=== PATIENT | male | born 1985 | race Two or more races ===

== ENCOUNTER 2021-12-02 16:25 | Inpatient (IN) | payer OTHER, SELFPAY ==
--- NOTE | ~2021-12-02 | US_ITS ---
EXAMINATION: US scrotum doppler DATE: 12/04/2021 09:00 INDICATION: Assess for worsening ischemia. TECHNIQUE: Testicular sonogram utilizing grayscale and Doppler COMPARISON: None. FINDINGS: The right testis measures 4.2 x 3.8 x 2.0 cm. The left testis measures 4.4 x 3.2 x 2.9 cm. Normal gra yscale appearance to the right testis. The left testis there is a geographic region of decreased echo genicity centered over the rete testes which measures 2.8 x 2.4 x 3.1 cm. There is however no evident distortion of the architectural pattern of the left testis to suggest this represents a mass. There is asymmetric decreased vascular flow on color Doppler in the left testis relative to the right testi s particularly in the more hypoechoic region were there is no discernible vascular flow on color Dopp ler. At the more hyperechoic region of the left testis there is some arterial flow on the peripheral capsule and small vessel with venous waveform within the hyperechoic portion of the testis. The right epididymis is normal with normal vascular flow. The left epididymis appears edematous, thickened wit h heterogeneous decreased echogenicity relative to the right testis. There is also asymmetrically dec reased but not absent vascular flow in the left epididymis relative to the right epididymis. There is no varicocele. Small complex left hydrocele with multiple thin internal septations. IMPRESSION: 1. Persistent 2.8 x 2.4 x 3.1 cm geographic region occupying approximately one half the left testicu lar volume which demonstrates decreased echogenicity and absent vascular flow on color Doppler which remains concerning for segmental infarction. Vascular flow is present but appears asymmetrically decr eased in the remainder of the left testis and in the left epididymis relative to the contralateral ri ght testis and epididymis. This could be due to either thrombosis or torsion with some regions of rel atively preserved vascular flow due to collaterals. 2. Small complex left hydrocele. Reviewed, dictated and finalized at location A. IMPRESSION: 1. Persistent 2.8 x 2.4 x 3.1 cm geographic region occupying approximately one half the left testicular volume which demonstrates decreased echogenicity and absent vascular flow on color Doppler which remains concerning for segmental in farction. Vascular flow is present but appears asymmetrically decreased in the remainder of the left testis and in the left epididymis relative to the contral ateral right testis and epididymis. This could be due to either thrombosis or t orsion with some regions of relatively preserved vascular flow due to collatera ls. 2. Small complex left hydrocele.
--- NOTE | ~2021-12-02 | US_ITS ---
EXAMINATION: US scrotum doppler DATE: 12/02/2021 19:10 INDICATION: Pain, rule out torsion. Vasectomy 5 days ago. TECHNIQUE: Grayscale and Doppler ultrasound images of the testes were obtained. COMPARISON: None. FINDINGS: The right testis measures 4.5 x 2.1 x 2.5 cm. The left testis measures 4.4 x 2.8 x 3.0 cm. Sharply demarcated hypoechoic area in the left testicle encompassing approximately one half testicula r volume, with no flow. Findings are atypical for torsion and most likely represent testicular infarc tion, although intratesticular hematoma, rare entities like granulomatous disease, or testicular neop lasm (with poor Doppler technique) can appear similar. Slightly decreased vascular flow in the remain ing normal left testicle parenchyma relative to the right. The right epididymis is normal with normal vascular flow. The left epididymis is slightly enlarged relative to the right, measuring 11 mm. No v aricocele. Moderate right hydrocele. Mild volume complex left hydrocele. Scrotal skin thickening. IMPRESSION: 1. Abnormal findings in the left testicle, likely representing segmental testicular infarction. Diff erential discussed above. 2. Bilateral hydroceles, moderate volume on the right, small volume and complex on the left. Reviewed, dictated and finalized at location K. IMPRESSION: 1. Abnormal findings in the left testicle, likely representing segmental testi cular infarction. Differential discussed above. 2. Bilateral hydroceles, moderate volume on the right, small volume and complex on the left.
[2021-12-02 16:25] VITALS: BP 150/89; PULSE 84; RESP 17; TEMP 37.6; O2SAT 99
--- NOTE | 2021-12-02 16:27 | ED.MALEGU ---
HPI - Male Genitourinary General Chief complaint: Urogenital-Male <Michlele Staton MD - Last Filed: 12/02/21 18:47> Stated complaint: POSSIBLE TORSION - URGENT CARE <Michelle Staton MD - Last Filed: 12/02/21 18:47> Time Seen by Provider: 12/02/21 16:26 <Michelle Staton MD - Last Filed: 12/02/21 18:47> History of Present Illness HPI Narrative: here from [facility] ER after having vasectomy where he says they told him he woke up on the table trying to get off it so when he started having pain that night after the procedure last Friday thought he might have pulled something from moving in procedure but it has been progressing since so went to the ER, I reviewed their labs cbc, cmp and ua neg and had procedure done at [facility] but ER doc there called Dr Rios here b/c they have no US oncall for evaluation I spoke with Dr French ER doc and transferred here for US and then Dr Rios can evaluate pt denies nv/d/f/cp/sob/abd pain//urine chagnes or new trauma <Michelle Staton MD - Last Filed: 12/02/21 18:47> Related Data Home medications: Home Medications Medication Instructions Recorded Confirmed acetaminophen 325 mg tablet mg PRN Pain, Mild 12/02/21 12/02/21 (Tylenol) ibuprofen 600 mg tablet mg PRN Pain (Scale Score 4-6) 12/02/21 <Michelle Staton MD - Last Filed: 12/02/21 18:47> Allergies/Adverse reactions: Allergies Allergy/AdvReac Type Severity Reaction Status Date / Time No Known Allergies Allergy Verified 12/02/21 16:38 <Michelle Staton MD - Last Filed: 12/02/21 18:47> Review of Systems Constitutional: Comments: CONSTITUTIONAL: Denies fever, chills, or sweats. EYES: Denies visual changes, redness, or discharge. ENT: Denies rhinorrhea, congestion, sore throat, or otalgia. CARDIOVASCULAR: Denies chest pain, palpitations, or edema. RESPIRATORY: Denies cough or dyspnea. GASTROINTESTINAL: Denies abdominal pain, nausea, vomiting, or diarrhea. GENITOURINARY: Denies dysuria or hematuria. has left testicular pain and swelling post op SKIN: Denies rash or itching. MUSCULOSKELETAL: Denies back pain, joint pain, or myalgia. NEUROLOGIC: Denies headache, numbness, or weakness. PSYCHIATRIC: Denies anxiety or depression. <Michelle Staton MD - Last Filed: 12/02/21 18:47> Exam Const: Other: APPEARANCE: Well appearing, no pain in distress, well-nourished. Head normocephalic atraumtaic. EYES: PERRLA/EOMI, conjunctivae very clear. NOSE: Normal no drainage EARS:TMS clear Evelyne Moreau, with good light reflex. THROAT: Pharynx clear, no exudate. NECK: Supple. No adenopathy, no masses. RESPIRATORY: Airway patent, repsirations nonlabored. Clear to auscultation bilaterally, no rales, rhonchi, wheezing. CARDIOVASCULAR: Regular rate and rhythm without murmurs rubs or gallops. ABDOMINAL: Soft, nontender, nondistended, no hepatosplenomegally has left testicular firmness and pain no hernia or penile lesions/d/c MUSCULOSKELETAl: Moves all extremities. Strenght/ROM intact, No edema, No calf tenderness. NEURO: Alert. Cranial nerves II through XII intact. Good gait. Good coordination SKIN:: Warm, dry. Normal Color PSYCHIATRIC: Normal affect/mood, normal interaction with parents. <Michelle Staton MD - Last Filed: 12/02/21 18:47> Course Reevaluation(s) Reevaluation #1: Dr. Rios was consulted and reports he is en route to the ED. <David Brewer MD - Last Filed: 12/02/21 20:40> Reevaluation #2: Patient will be admitted with IV antibiotics and pain control. Urology was consulted. Urology requested patient be admitted to the hospitalist. Case was discussed with the hospitalist and patient was septic for admission. Prior to going to the floor patient was given additional Dilaudid for pain control and started on Unasyn. Patient was stable at time of admission. <David Brewer MD - Last Filed: 12/02/21 20:40> Consultations Consultation #1: let Al
[2021-12-02] MEDS: ONDANSETRON INJ 4 MG/2 ML VIAL IV PUSH ×2 (16:56→20:42)
[2021-12-02] MEDS: HYDROmorphone HCL INJ (*CRX) 1 MG/ML SYR 2 MG IV PUSH (16:57)
[2021-12-02 17:39] VITALS: BP 141/79; PULSE 85; RESP 19; O2SAT 98
--- NOTE | 2021-12-02 18:57 | PC.NURSE ---
Pt to U/S at this time.
[2021-12-02 19:12] VITALS: BP 153/83; PULSE 76; RESP 17; O2SAT 99
--- NOTE | 2021-12-02 20:10 | PC.NURSE ---
Urologist Dr. Rios present in ED to examine pt.
--- NOTE | 2021-12-02 20:19 | WPDURCON ---
Assessment and Plan Assessment and plan (1) Testicular infarct, left: Code(s): N50.1 - Vascular disorders of male genital organs Status: Acute Assessment and Plan: After examination and review of images, the likeliest cause of this patient's pain is testicular infarct due to devacularization. His history, exam, and ultrasound are not consistent with testicular torsion. I have reviewed the images and agree with radiology interpretation. I discussed the options of observation, particularly as this has been ongoing for 5 days vs. scrotal exploration. The patient and his agree against exploration tonight in favor of admission for pain control and antibiotics as orchitis remains a possibility. He understands he may, and likely will, lose function and volume of at least 1/2 of the left testicle and is comfortable with this possibility. His principal concern is pain control. He will require outpatient follow up ultrasounds. Recommendations: 1. Admit to observation. 2. Pain control with NSAIDs and narcotics as needed. 3. Antibiotics--consider Augmentin vs. Bactrim. 4. Scrotal support, ice and sitz baths for symptom support. Jean Marie Rios M.D. [facility] Consult Note HPI Date Seen: 12/02/21 Primary Care Provider: PHYSICIAN NOT ON STAFF Consult Narrative Narrative: Chelo Storm is a 36 year old male who underwent vasectomy under sedation in [place] on Friday11/28/2021. The patient reports he was told that he came of the table during the procedure due to pain but not recall this due to the sedation. He reports he noted swelling and pain postoperatively that progressively worsened. Today, the pain worsened to the point that he decided to seek evaluation at [facility] in [place]. He was transferred to [place] due to lack of US staffing at [place]. He denies fevers, his WBC wsa 9.2, Hgb 14.2 Hct 41.7, lactate 1.7, normal UA and normal BMP at [place]. His US today shows a segmental infarct involving the cephalad half of the left testicle with a defined margin of hypoechoic parenchyma involving only the superior half of the testicle. Review of Systems Review of Systems: All systems reviewed & are unremarkable except as noted in HPI and below Genitourinary: Comments: Scrotal pain Meds Home Medications and Allergies Home Medications Medication Instructions Recorded Confirmed Type acetaminophen 325 mg tablet mg PRN Pain, Mild 12/02/21 12/02/21 History (Tylenol) ibuprofen 600 mg tablet mg PRN Pain (Scale Score 4-6) 12/02/21 History Allergies Allergy/AdvReac Type Severity Reaction Status Date / Time No Known Allergies Allergy Verified 12/02/21 16:38 Vital Signs Vital Signs - 24 hr 12/02/21 16:25 12/02/21 17:39 12/02/21 19:12 Temperature 99.7 F H Pulse Rate 84 85 76 Respiratory Rate 17 19 17 Blood Pressure 150/89 H 141/79 H 153/83 H Pulse Oximetry 99 98 99 Oxygen Delivery Room Air Exam Narrative: NAD, A&Ox3 RRR eWOB S/NT/ND Scrotal skin appears normal, incisions are well approximated, no crepitus, drainage or other concerning lesion. Right testicle is mildly tender to palpation as expected, no concerning lesion or other significant finding. The left testicle is extremely tender to palpation, with swelling noted and tense hydrocele palpable around the testicle. Results Imaging My impression: I have reviewed the images which demonstrate bilateral sympathetic hydroceles, right testicle with normal echotexture, no lesions noted. Left testicle with defined hypoechoic margin involving the cephalad half of the testicle. Blood flow appears normal in the lower half of the testicle. This is most consistent with a segmental infarct. Radiologist's impression: FINDINGS: The right testis measures 4.5 x 2.1 x 2.5 cm. The left testis measures 4.4 x 2.8 x 3.0 cm. Sharply demarcated hypoechoic area in the left testicle encompassing approximat
[2021-12-02 20:28] LABS: Basophils Absolute Auto 0.1 K/mm3 (0.0-0.1); Basophils Percent Auto 0.6 % (0.2-1.2); Eosinophils Absolute Auto 0.4 K/mm3 (0-0.3); Eosinophils Percent Auto 3.8 % (0-4.4); Hematocrit 42.9 % (42.0-52.0); Hemoglobin 14.6 g/dL (14.0-18.0); Immature Granulocyte Absolute 0.05 K/mm3 (0.00-0.031); Immature Granulocyte Percent A 0.5 % (0-0.5); Lymphocytes Absolute Auto 2.65 K/mm3 (0.9-3.2); Lymphocytes Percent Auto 24.3 % (18.3-44.2); Mean Corpuscular Hemoglobin 30.8 pg (26-34); Mean Corpuscular Volume 90.5 fl (80-100); Mean Platelet Volume 10.3 fl (7.4-10.4); Monocytes Absolute Auto 1.2 K/mm3 (0.1-0.6); Monocytes Percent Auto 10.8 % (2.6-8.5); Neutrophils Absolute Auto 6.5 K/mm3 (1.3-6.7); Platelet Count Result 274 k/mm3 (150-375); Red Blood Count 4.74 M/mm3 (4.6-6.20); Red Cell Distribution Width 11.7 % (11.5-14.5); White Blood Count 10.9 K/mm3 (4.5-10.0)
[2021-12-02 20:40] LABS: Alanine Aminotransferase 47 U/L (6-50); Albumin Level 4.7 g/dL (3.5-5.1); Alkaline Phosphatase 79 U/L (38-126); Anion Gap 6 mmol/L (8-16); Aspartate Amino Transferase 42 U/L (17-59); Bilirubin,Total 0.8 mg/dL (0.2-1.3); Blood Urea Nitrogen 10 mg/dL (9-20); Calcium 9.4 mg/dL (8.4-10.2); Carbon Dioxide 30 mmol/L (22-30); Chloride 104 mmol/L (98-107); Estimated CRCL calculation 139 ml/min; Estimated Glomerular Filt Rate > 60; Glucose 97 mg/dL (65-110); Potassium 4.1 mmol/L (3.4-5.0); Sodium 140 mmol/L (137-145)
[2021-12-02] MEDS: HYDROmorphone HCL INJ (*CRX) 1 MG/ML SYR IV PUSH (20:40)
[2021-12-02] MEDS: AMPICILLIN SULB 1.5 GM/NS 50ML 1.5 GM/50 ML VIAL IVPB (20:52)
[2021-12-02 21:10] VITALS: BP 144/81; PULSE 75; RESP 20; O2SAT 98
--- NOTE | 2021-12-02 21:34 | ADMGEN ---
This patient, Chelo Storm, was admitted to [facility] Surg Room 326-01. Patient/family oriented to hospital policies and general routines including ID bracelet, bed and alarms, visiting hours, pain management, procedures, bathroom and other care routines, personal items, smoking policy, room service/diet, and visiting hours. Information on how to activate the Rapid Response Team has been discussed. Patient/Family are encouraged to report perceived risks to care and to ask questions if they do not understand what they are told or what they should do.
[2021-12-02 21:35] VITALS: BMI 38.2
[2021-12-02 22:00] VITALS: BP 152/79; PULSE 76; RESP 18; TEMP 36.8; O2SAT 94
[2021-12-02] MEDS: traMADol HCL (*CRX) 50 MG TABLET PO (22:13)
[2021-12-03] MEDS: HYDROmorphone HCL INJ (*CRX) 1 MG/ML SYR IV PUSH ×5 (01:10→20:35)
--- NOTE | 2021-12-03 01:13 | PM.IMHP ---
H&P: HPI History of Present Illness Date/Time: 12/03/21 01:13 Chief Complaint: testicular pain Narrative: This is a 36-year-old male with no significant past medical history patient is status post a vasectomy. Presents to the emergency room due to testicular pain of the left side. No fevers, no chills, no nausea, no vomiting, no abdominal pain. patient try ibuprofen and Tylenol at home but did not help and decided to come to the emergency room. At the time of my visit patient rates his pain at 10/10 intensity, relieved only by IV medication. Preliminary workup was significant for a scrotal ultrasound with abnormal findings in the left testicle, likely representing segmental testicular infarction, bilateral hydroceles, moderate volume on the right, small volume and complex on the left. patient has been admitted for further evaluation management and treatment. Review of Systems Review of Systems: TESTICULAR PAIN OF THE LEFT SIDE STATUS POST VASECTOMY Constitutional: Constitutional: Denies chills, Denies fatigue, Denies fever(s), Denies malaise, Denies night sweats, Denies poor appetite and Denies weakness Eyes: Eyes: Denies change in vision ENT: Denies dysphagia, Denies vertigo, Denies dizziness, Denies nasal obstruction and Denies odynophagia Cardiovascular: Cardiovascular: Denies chest pain, Denies syncope, Denies irregular heart rhythm, Denies lightheadedness, Denies palpitations and Denies dyspnea on exertion Respiratory: Respiratory: Denies cough and Denies dyspnea Gastrointestinal: Gastrointestinal: Denies abdominal pain, Denies dyspepsia, Denies heartburn, Denies diarrhea, Denies nausea and Denies vomiting Genitourinary: Genitourinary: Denies dysuria and Reports testicular pain ( left-sided) Musculoskeletal: Musculoskeletal: Denies back pain, Denies myalgias, Denies arthralgias, Denies joint swelling and Denies muscle weakness Integumentary/Breasts: Skin/Breast: Denies rash Neurologic: Denies vertigo, Denies dizziness, Denies focal weakness and Denies Sensory deficit (Neuro) Psychiatric: Psychiatric: Reports no additional psychiatric complaints and Reports as per HPI Endocrine: Endocrine: Denies cold intolerance, Denies fatigue, Denies flushing, Denies heat intolerance, Denies polyphagia, Denies polydipsia and Denies palpitations Hematologic/Lymphatic: Hematologic/Lymphatic: Reports no additional hematologic/lymphatic complaints and Reports as per HPI Allergic/Immunologic: Allergic/Immunologic: Reports no additional allergic/immunologic complaints and Reports as per HPI [facility] Family History Family History (Updated 12/02/21 @ 21:47 by Oxana Hays RN) Father Pancreatic cancer Cerebrovascular accident Hypertension Diabetes mellitus Mother Cerebrovascular accident Diabetes mellitus Grandparent Diabetes mellitus Social History Social History Smoking packs per day: 1 Smoking cigarettes per day: 20.0 Years smoked: 5 Smoking pack-years: 5.00 Smoking status: Former smoker Tobacco type: cigarettes Alcohol intake: current Drinks per week: 12 Substance use: never Spiritual care concerns: No Meds Home Medications and Allergies Home Medications Medication Instructions Recorded Confirmed Type acetaminophen 325 mg tablet 650 mg Q6H PRN Pain, Mild 12/02/21 12/02/21 History (Tylenol) ibuprofen 600 mg tablet 600 mg PO Q6H PRN Pain (Scale 12/02/21 12/02/21 History Score 4-6) Allergies Allergy/AdvReac Type Severity Reaction Status Date / Time No Known Allergies Allergy Verified 12/02/21 16:38 Vital Signs Vital Signs - 24 hr 12/02/21 16:25 12/02/21 17:39 12/02/21 19:12 Temperature 99.7 F H Pulse Rate 84 85 76 Respiratory Rate 17 19 17 Blood Pressure 150/89 H 141/79 H 153/83 H Pulse Oximetry 99 98 99 Oxygen Delivery Room Air 12/02/21 21:10 12/02/21 22:00 Temperature 98.2 F Pulse Rate 75 76 Respiratory Rate 20 18 Blood Pressure 144
[2021-12-03] MEDS: ONDANSETRON INJ 4 MG/2 ML VIAL IV PUSH ×4 (01:14→20:40)
[2021-12-03] MEDS: AMPICILLIN SULB 3 GM/NS 100 ML 3 GM/100 ML VIAL IVPB ×4 (03:18→20:34)
[2021-12-03] MEDS: traMADol HCL (*CRX) 50 MG TABLET PO (03:54)
[2021-12-03 05:37] VITALS: BP 148/81; PULSE 91; RESP 16; TEMP 36.1; O2SAT 97
[2021-12-03 07:46] LABS: Basophils Absolute Auto 0.1 K/mm3 (0.0-0.1); Basophils Percent Auto 0.8 % (0.2-1.2); Eosinophils Absolute Auto 0.3 K/mm3 (0-0.3); Hematocrit 40.6 % (42.0-52.0); Hemoglobin 13.9 g/dL (14.0-18.0); Immature Granulocyte Absolute 0.04 K/mm3 (0.00-0.031); Immature Granulocyte Percent A 0.5 % (0-0.5); Lymphocytes Percent Auto 16.8 % (18.3-44.2); Mean Corpuscular HGB Conc 34.2 g/dl (32-36); Mean Corpuscular Hemoglobin 31.3 pg (26-34); Mean Corpuscular Volume 91.4 fl (80-100); Monocytes Absolute Auto 0.7 K/mm3 (0.1-0.6); Monocytes Percent Auto 9.3 % (2.6-8.5); Neutrophils Absolute Auto 5.3 K/mm3 (1.3-6.7); Neutrophils Percent Auto 68.6 % (45.5-73.1); Platelet Count Result 265 k/mm3 (150-375); Red Blood Count 4.44 M/mm3 (4.6-6.20); Red Cell Distribution Width 11.6 % (11.5-14.5); White Blood Count 7.7 K/mm3 (4.5-10.0)
[2021-12-03 07:58] LABS: Anion Gap 8 mmol/L (8-16); Blood Urea Nitrogen 13 mg/dL (9-20); Calcium 9.1 mg/dL (8.4-10.2); Carbon Dioxide 29 mmol/L (22-30); Chloride 100 mmol/L (98-107); Estimated CRCL calculation 129 ml/min; Estimated Glomerular Filt Rate > 60; Glucose 115 mg/dL (65-110); Potassium 3.9 mmol/L (3.4-5.0); Sodium 137 mmol/L (137-145)
--- NOTE | 2021-12-03 08:34 | WPDUROPN2 ---
Progress Note: A&P Assessment and Plan (1) Testicular pain, left: Code(s): N50.812 - Left testicular pain Status: Acute (2) Testicular infarct, left: Code(s): N50.1 - Vascular disorders of male genital organs Status: Acute Assessment and Plan: 1. Try toradol 30 mg q6 hr prn pain 3 doses for pain, at discharge, patient can likely transition to IBUprofen. 2. Consider discharge with Bactrim x 10 days. 3. Follow up with personal Urologist tomorrow. 4. No urologic surgery, patient may eat. We discussed scrotal exploration, however as this is a segmental infarct based on history and ultrasound findings, will defer surgical intervention at this time as risks outweigh benefit. Subjective Subjective Date/Time Seen: 12/03/21 08:34 NAEO, patient reports persistence of pain. Exam Narrative: NAD, A&Ox3 RRR eWOB S/NT/ND Scrotum with tenderness to palpation on left, similar to yesterday evening, incision c/d/i. Objective Data Vital Signs Vital Signs: Vital Signs - 24 hr 12/02/21 16:25 12/02/21 17:39 12/02/21 19:12 Temperature 99.7 F H Pulse Rate 84 85 76 Respiratory Rate 17 19 17 Blood Pressure 150/89 H 141/79 H 153/83 H Pulse Oximetry 99 98 99 Oxygen Delivery Room Air 12/02/21 21:10 12/02/21 22:00 12/03/21 05:37 Temperature 98.2 F 97 F L Pulse Rate 75 76 91 Respiratory Rate 20 18 16 Blood Pressure 144/81 H 152/79 H 148/81 H Pulse Oximetry 98 94 97 Oxygen Delivery Intake/Output Intake/Output: Intake & Output 11/30/21 12/01/21 12/02/21 12/03/21 23:59 23:59 23:59 23:59 Intake Total 50 100 Output Total 400 Balance 50 -300 Meds/Results Medications: Active Medications Generic Name Dose Route Start Last Admin Trade Name Freq PRN Reason Stop Dose Admin Acetaminophen 1,000 mg 12/02/21 21:44 Acetaminophen 500 Mg Tablet PO Q6H PRN Mild Pain (1-3) or Fever Hydromorphone HCl 1 mg 12/02/21 20:34 12/03/21 05:50 Hydromorphone Hcl Inj (*Crx) 1 Mg/Ml Syr IV PUSH 1 mg Q4H PRN Administration Pain Rated 7-10 Ampicillin Sodium/Sulbactam Sodium 3 gm in 100 mls @ 200 mls/hr 12/03/21 03:00 12/03/21 03:57 Unasyn 3 Gm/Ns 100 Ml IVPB Infused Q6H CONSUELO Infusion Ondansetron HCl 4 mg 12/02/21 20:34 12/03/21 05:48 Ondansetron Inj 4 Mg/2 Ml Vial IV PUSH 4 mg Q4H PRN Administration Nausea Tramadol HCl 50 mg 12/02/21 21:45 12/03/21 03:54 Tramadol Hcl (*Crx) 50 Mg Tablet PO 50 mg Q6H PRN Administration Pain Rated 4-6 Radiology Results: ITS Impressions Scrotum Ultrasound 12/02/21 19:16 IMPRESSION: 1. Abnormal findings in the left testicle, likely representing segmental testicular infarction. Differential discussed above. 2. Bilateral hydroceles, moderate volume on the right, small volume and complex on the left. Labs Labs: Laboratory Results - last 24 hr 12/02/21 12/02/21 12/03/21 20:22 20:22 07:38 WBC 10.9 H 7.7 RBC 4.74 4.44 L Hgb 14.6 13.9 L Hct 42.9 40.6 L MCV 90.5 91.4 MCH 30.8 31.3 MCHC 34.0 34.2 RDW 11.7 11.6 Plt Count 274 265 MPV 10.3 10.0 Immature Gran % (Auto) 0.5 0.5 Neut % (Auto) 60.0 68.6 Lymph % (Auto) 24.3 16.8 L Haakon % (Auto) 10.8 H 9.3 H Eos % (Auto) 3.8 4.0 Baso % (Auto) 0.6 0.8 Lymph # (Auto) 2.65 1.30 Haakon # (Auto) 1.2 H 0.7 H Eos # (Auto) 0.4 H 0.3 Baso # (Auto) 0.1 0.1 Abs Immat Gran (auto) 0.05 H 0.04 H Absolute Neuts (auto) 6.5 5.3 Absolute Nucleated RBC 0.0 0.0 Nucleated RBC % 0.0 0.0 Sodium 140 Potassium 4.1 Chloride 104 Carbon Dioxide 30 Anion Gap 6 L BUN 10 Creatinine 1.00 Estim Creat Clear Calc 139 Estimated GFR > 60 Glucose 97 Calcium 9.4 Total Bilirubin 0.8 AST 42 ALT 47 Alkaline Phosphatase 79 Total Protein 8.0 Albumin 4.7 12/03/21 07:38 WBC RBC Hgb Hct MCV MCH MCHC RDW Plt Count M
[2021-12-03] MEDS: KETOROLAC 30 MG/ML VIAL (*BKC) IV PUSH (10:09)
--- NOTE | 2021-12-03 10:30 | PM.IMPN ---
Progress Note: A&P Assessment and Plan (1) Testicular infarct, left: Code(s): N50.1 - Vascular disorders of male genital organs Status: Acute Assessment and Plan: -pt had vasectomy on 11/28/21 w/ Dr. Rojo in [facility] -US shows findings most consistent w/ testicular infarct -Dr. Rios urology consulted -operative vs conservative tx discussed, pt has decided against surgical exploration and has been admitted for pain control and abx. -Continue Unasyn, will transition to Bactrim at discharge -continue pain control w/ IV Dilaudid 1mg q3 prn 7-10 pain, Percocet 5/325 mg q4 prn 4-6 pain. Hopefully transition to PO narcotic tomorrow in anticipation of discharge but will continue IV pain control overnight. -scrotal support, ice, and sitz baths Subjective Date/time seen: 12/03/21 10:30 Interval history: Previously healthy 36 yo male admitted for testicular infarct. Still having severe pain today. Fidgeting on exam, extremely uncomfortable despite Dilaudid. Would like to stay one more night for pain control. Has scrotal pain and groin pain. No N/V. No cp/sob. No other complaints. Review of Systems Review of Systems: All systems reviewed & are unremarkable except as noted in HPI and below Exam Narrative: General: mild distress secondary to pain, non toxic appearing Eyes: PERRL, no scleral icterus HEENT: NCAT, external ears normal, MMM Respiratory: No respiratory distress, Lungs CTA bilaterally, no wheezing Cardiovascular: RRR, no murmur Abdominal: Soft, nontender, non distended, no rebound or guarding : deferred as urologist had just examined patient Musculoskeletal: Moves all 4 extremities, no edema Neurological: A/Ox3, speech clear, no facial asymmetry Skin: Warm, dry, no rashes Psychiatric: Normal affect, normal mood Objective Data Vital Signs Vital Signs: Vital Signs - 24 hr 12/02/21 16:25 12/02/21 17:39 12/02/21 19:12 Temperature 99.7 F H Pulse Rate 84 85 76 Respiratory Rate 17 19 17 Blood Pressure 150/89 H 141/79 H 153/83 H Pulse Oximetry 99 98 99 Oxygen Delivery Room Air 12/02/21 21:10 12/02/21 22:00 12/03/21 05:37 Temperature 98.2 F 97 F L Pulse Rate 75 76 91 Respiratory Rate 20 18 16 Blood Pressure 144/81 H 152/79 H 148/81 H Pulse Oximetry 98 94 97 Oxygen Delivery Intake/Output Intake/Output: Intake & Output 11/30/21 12/01/21 12/02/21 12/03/21 23:59 23:59 23:59 23:59 Intake Total 50 100 Output Total 400 Balance 50 -300 Meds/Results Medications: Active Medications Generic Name Dose Route Start Last Admin Trade Name Freq PRN Reason Stop Dose Admin Acetaminophen 1,000 mg 12/02/21 21:44 Acetaminophen 500 Mg Tablet PO Q6H PRN Mild Pain (1-3) or Fever Hydromorphone HCl 1 mg 12/02/21 20:34 12/03/21 05:50 Hydromorphone Hcl Inj (*Crx) 1 Mg/Ml Syr IV PUSH 1 mg Q4H PRN Administration Pain Rated 7-10 Ampicillin Sodium/Sulbactam Sodium 3 gm in 100 mls @ 200 mls/hr 12/03/21 03:00 12/03/21 09:57 Unasyn 3 Gm/Ns 100 Ml IVPB 200 mls/hr Q6H CONSUELO Administration Ketorolac Tromethamine 30 mg 12/03/21 08:33 12/03/21 10:09 Ketorolac 30 Mg/Ml Vial (*Bkc) IV PUSH 30 mg Q6H PRN Administration Pain Rated 4-6 Ondansetron HCl 4 mg 12/02/21 20:34 12/03/21 05:48 Ondansetron Inj 4 Mg/2 Ml Vial IV PUSH 4 mg Q4H PRN Administration Nausea Radiology Results: ITS Impressions Scrotum Ultrasound 12/02/21 19:16 IMPRESSION: 1. Abnormal findings in the left testicle, likely representing segmental testicular infarction. Differential discussed above. 2. Bilateral hydroceles, moderate volume on the right, small volume and complex on the left. Labs Labs: Laboratory Results - last 24 hr 12/02/21 12/02/21 12/03/21 20:22 20:22 07:38 WBC 10.9 H 7.7 RBC 4.74 4.44 L Hgb 14.6 13.9 L Hct 42.9 40.6 L MCV 90.5 91.4 MCH 30.[address] 31[address]
[2021-12-03 12:37] VITALS: O2SAT 96
[2021-12-03] MEDS: oxyCODONE/ACETAMINOPHEN (*CRX) 5-325 MG TABLET 1 TABLET PO (12:47)
[2021-12-03 14:00] VITALS: BP 135/69; PULSE 61; RESP 17; TEMP 36.6; O2SAT 97
[2021-12-03 20:35] VITALS: PULSE 71; RESP 16; O2SAT 99
[2021-12-03 22:00] VITALS: BP 129/66; PULSE 71; RESP 16; TEMP 36.7; O2SAT 99
[2021-12-04] MEDS: ONDANSETRON INJ 4 MG/2 ML VIAL IV PUSH ×2 (02:06→08:08)
[2021-12-04] MEDS: HYDROmorphone HCL INJ (*CRX) 1 MG/ML SYR IV PUSH ×2 (02:06→08:04)
[2021-12-04] MEDS: AMPICILLIN SULB 3 GM/NS 100 ML 3 GM/100 ML VIAL IVPB ×4 (03:39→21:04)
[2021-12-04 06:00] VITALS: BP 134/58; PULSE 60; RESP 16; TEMP 36.8; O2SAT 95
[2021-12-04 07:33] LABS: Basophils Absolute Auto 0.1 K/mm3 (0.0-0.1); Basophils Percent Auto 0.8 % (0.2-1.2); Eosinophils Absolute Auto 0.3 K/mm3 (0-0.3); Hematocrit 40.6 % (42.0-52.0); Hemoglobin 14.1 g/dL (14.0-18.0); Immature Granulocyte Absolute 0.03 K/mm3 (0.00-0.031); Immature Granulocyte Percent A 0.4 % (0-0.5); Lymphocytes Absolute Auto 1.47 K/mm3 (0.9-3.2); Lymphocytes Percent Auto 20.8 % (18.3-44.2); Mean Corpuscular HGB Conc 34.7 g/dl (32-36); Mean Corpuscular Hemoglobin 31.3 pg (26-34); Mean Corpuscular Volume 90.2 fl (80-100); Mean Platelet Volume 10.3 fl (7.4-10.4); Monocytes Absolute Auto 0.7 K/mm3 (0.1-0.6); Neutrophils Absolute Auto 4.5 K/mm3 (1.3-6.7); Platelet Count Result 279 k/mm3 (150-375); Red Cell Distribution Width 11.4 % (11.5-14.5); White Blood Count 7.1 K/mm3 (4.5-10.0)
[2021-12-04 07:42] LABS: Anion Gap 4 mmol/L (8-16); Blood Urea Nitrogen 16 mg/dL (9-20); Calcium 8.9 mg/dL (8.4-10.2); Carbon Dioxide 30 mmol/L (22-30); Chloride 104 mmol/L (98-107); Estimated CRCL calculation 129 ml/min; Estimated Glomerular Filt Rate > 60; Glucose 116 mg/dL (65-110); Potassium 4.6 mmol/L (3.4-5.0); Sodium 138 mmol/L (137-145)
--- NOTE | 2021-12-04 09:43 | WPDUROPN2 ---
Progress Note: A&P Assessment and Plan (1) Testicular infarct, left: Code(s): N50.1 - Vascular disorders of male genital organs Status: Acute Assessment and Plan: Scrotal ultrasound revealed no change in the segmental infarction of the left testicle. Does not have the appearance of a testicular torsion. Have discussed the options including conservative management but we will need to trying get him to oral pain med control. Will re-initiate anti-inflammatories at this time. If he tolerates oral narcotics he can be discharged home later today and follow up with his local urologist. If unable to control with oral narcotics or pain progresses patient has opted for scrotal exploration with possible and most likely left orchiectomy. Subjective Subjective Date/Time Seen: 12/04/21 09:43 Principal diagnosis: Segmental testicular infarct Interval history: Still continues to have pain requiring narcotics. Stat repeat scrotal ultrasound reveals no change or progression in infarction. Review of Systems Review of Systems: All systems reviewed & are unremarkable except as noted in HPI and below Exam Const: General: cooperative Resp: Effort & Inspection: normal respiratory effort Cardio: Rate: regular rate Rhythm: regular rhythm : Scrotum: edematous (Mild left) on the left Objective Data Vital Signs Vital Signs: Vital Signs - 24 hr 12/03/21 12:37 12/03/21 14:00 12/03/21 22:00 Temperature 36.6 C 36.7 C Pulse Rate 61 71 Respiratory Rate 17 16 Blood Pressure 135/69 129/66 Pulse Oximetry 96 97 99 Oxygen Delivery Room Air 12/03/21 20:35 12/04/21 06:00 Temperature 36.8 C Pulse Rate 71 60 Respiratory Rate 16 16 Blood Pressure 134/58 L Pulse Oximetry 99 95 Oxygen Delivery Room Air Intake/Output Intake/Output: Intake & Output 12/01/21 12/02/21 12/03/21 12/04/21 23:59 23:59 23:59 23:59 Intake Total 50 1680 850 Output Total 400 700 Balance 50 1280 150 Meds/Results Medications: Active Medications Generic Name Dose Route Start Last Admin Trade Name Freq PRN Reason Stop Dose Admin Acetaminophen 1,000 mg 12/02/21 21:44 Acetaminophen 500 Mg Tablet PO Q6H PRN Mild Pain (1-3) or Fever Hydromorphone HCl 1 mg 12/03/21 10:39 12/04/21 08:04 Hydromorphone Hcl Inj (*Crx) 1 Mg/Ml Syr IV PUSH 1 mg Q3H PRN Administration Pain Rated 7-10 Ampicillin Sodium/Sulbactam Sodium 3 gm in 100 mls @ 200 mls/hr 12/03/21 03:00 12/04/21 09:08 Unasyn 3 Gm/Ns 100 Ml IVPB 200 mls/hr Q6H CONSUELO Administration Ibuprofen 800 mg 12/04/21 09:00 Ibuprofen 400 Mg Tablet PO Q6H CONSUELO Ondansetron HCl 4 mg 12/02/21 20:34 12/04/21 08:08 Ondansetron Inj 4 Mg/2 Ml Vial IV PUSH 4 mg Q4H PRN Administration Nausea Oxycodone/Acetaminophen 1 tablet 12/03/21 10:38 12/03/21 12:47 Oxycodone/Acetaminophen (*Crx) 5-325 Mg Tablet PO 1 tablet Q4H PRN Administration Pain Rated 4-6 Radiology Results: ITS Impressions Scrotum Ultrasound 12/04/21 09:01 IMPRESSION: 1. Persistent 2.8 x 2.4 x 3.1 cm geographic region occupying approximately one half the left testicular volume which demonstrates decreased echogenicity and absent vascular flow on color Doppler which remains concerning for segmental infarction. Vascular flow is present but appears asymmetrically decreased in the remainder of the left testis and in the left epididymis relative to the contralateral right testis and epididymis. This could be due to either thrombosis or torsion with some regions of relatively preserved vascular flow due to collaterals. 2. Small complex left hydrocele. Labs Labs: Laboratory Results - last 24 hr 12/04/21 12/04/21 07:19 07:19 WBC 7.1 RBC 4.50 L Hgb 14.1 Hct 40.6 L MCV 90.2 MCH 31.3 MCHC 34.7 RDW 11.4 L Plt Count 279 MPV 10.3 Immature Gran % (Auto) 0.4 Neut % (Auto) 64.0 Lymph % (Auto) 20.8 Pershing
[2021-12-04] MEDS: IBUPROFEN 400 MG TABLET 800 MG PO ×3 (10:18→21:04)
--- NOTE | 2021-12-04 12:28 | PM.IMPN ---
Progress Note: A&P Assessment and Plan (1) Testicular infarct, left: Code(s): N50.1 - Vascular disorders of male genital organs Status: Acute Assessment and Plan: - patient is status post vasectomy - urology has consulted and is managing along with medicine. - Attempt to de-escalate pain medication from IVP to oral. - Scrotal US today showed no evidence of torsion. Time Spent With Patient Time: 10 mintues Subjective Date/time seen: 12/04/21 0800 This patient was examined at the bedside this morning in interval assessment after being admitted to the hospital with testicular infarction status post elective vasectomy. Patient has had increased pain and is still using IV pain medication. This morning he had repeat testicular ultrasound showed no torsion. Urology attempting to de-escalate pain medications to orally controlled. If unable to maintain pain control on oral pain medications or if there is any worsening of the patient's acute pain patient has opted for scrotal exploration with possible most likely left orchiectomy according to Urology. We will continue to monitor this patient's pain. He has no other new symptoms at this time. Review of Systems Review of Systems: All systems reviewed & are unremarkable except as noted in HPI and below Exam Const: General: uncomfortable (secondary to pain.) HENMT: General nose exam: Normal nares present Mouth: Yes moist mucous membranes Other: No lesions in the oropharynx. Eyes: General: appearance normal, both eyes and all related structures Sclera: sclerae normal Pupils: Equal, round and reactive pupils present EOM: EOMs intact bilaterally Neck: Neck: supple and no JVD Thyroid: thyroid normal Lymphatic: lymphadenopathy not noted Resp: Effort & Inspection: normal respiratory effort Auscultation: clear to auscultation bilaterally Cardio: Rate: regular rate Rhythm: regular rhythm Heart sounds: no gallops, no murmurs and no rubs GI: Inspection: non-distended GI Palp: Yes Soft to palpation, No Tenderness to palpation present (GI) and No Guarding due to palpation present (GI) Auscultation: normal bowel sounds : Male General Exam: No normal external exam Scrotum: edematous, not erythematous, testes descended bilaterally and scrotal swelling (Left is more swollen than right.) on the left and bilateral Testes: Enlarged testicle(s) present, testicular swelling and testicular tenderness Skin: General skin exam: normal color Neuro: Other: Non-focal exam. Extrem: General: normal to inspection and no edema Other: FROM of all extremities. Psych: Mental Status: mental status grossly normal Affect: normal affect Objective Data Vital Signs Vital Signs: Vital Signs - 24 hr 12/03/21 12:37 12/03/21 14:00 12/03/21 22:00 Temperature 97.8 F 98.1 F Pulse Rate 61 71 Respiratory Rate 17 16 Blood Pressure 135/69 129/66 Pulse Oximetry 96 97 99 Oxygen Delivery Room Air 12/03/21 20:35 12/04/21 06:00 Temperature 98.3 F Pulse Rate 71 60 Respiratory Rate 16 16 Blood Pressure 134/58 L Pulse Oximetry 99 95 Oxygen Delivery Room Air Intake/Output Intake/Output: Intake & Output 12/01/21 12/02/21 12/03/21 12/04/21 23:59 23:59 23:59 23:59 Intake Total 50 1680 950 Output Total 400 700 Balance 50 1280 250 Meds/Results Medications: Active Medications Generic Name Dose Route Start Last Admin Trade Name Tan PRN Reason Stop Dose Admin Acetaminophen 1,000 mg 12/02/21 21:44 Acetaminophen 500 Mg Tablet PO Q6H PRN Mild Pain (1-3) or Fever Hydromorphone HCl 1 mg 12/03/21 10:39 12/04/21 08:04 Hydromorphone Hcl Inj (*Crx) 1 Mg/Ml Syr IV PUSH 1 mg Q3H PRN Administration Pain Rated 7-10 Ampicillin Sodium/Sulbactam Sodium 3 gm in 100 mls @ 200 mls/hr 12/03/21 03:00 12/04/21 10:18 Unasyn 3 Gm/Ns 100 Ml IVPB Infused Q6H CONSUELO Infusion Ibuprofen 800 mg 12/04/21 09:00 12/04/21 10:18
[2021-12-04 14:00] VITALS: BP 145/85; PULSE 73; RESP 16; TEMP 36.8; O2SAT 98
[2021-12-04] MEDS: oxyCODONE/ACETAMINOPHEN (*CRX) 5-325 MG TABLET 1 TABLET PO ×2 (14:50→18:50)
[2021-12-04 22:00] VITALS: BP 133/73; PULSE 63; RESP 16; TEMP 36.8; O2SAT 97
[2021-12-05] MEDS: AMPICILLIN SULB 3 GM/NS 100 ML 3 GM/100 ML VIAL IVPB ×2 (03:37→08:24)
[2021-12-05] MEDS: IBUPROFEN 400 MG TABLET 800 MG PO ×2 (03:37→08:24)
[2021-12-05 06:00] VITALS: BP 126/67; PULSE 67; RESP 16; TEMP 36.4; O2SAT 97
[2021-12-05 07:25] LABS: Basophils Absolute Auto 0.1 K/mm3 (0.0-0.1); Basophils Percent Auto 0.9 % (0.2-1.2); Eosinophils Absolute Auto 0.3 K/mm3 (0-0.3); Eosinophils Percent Auto 4.4 % (0-4.4); Hemoglobin 13.6 g/dL (14.0-18.0); Immature Granulocyte Absolute 0.03 K/mm3 (0.00-0.031); Immature Granulocyte Percent A 0.5 % (0-0.5); Lymphocytes Absolute Auto 1.66 K/mm3 (0.9-3.2); Lymphocytes Percent Auto 26.3 % (18.3-44.2); Mean Corpuscular Hemoglobin 31.1 pg (26-34); Mean Corpuscular Volume 91.3 fl (80-100); Mean Platelet Volume 10.4 fl (7.4-10.4); Monocytes Absolute Auto 0.6 K/mm3 (0.1-0.6); Monocytes Percent Auto 8.7 % (2.6-8.5); Neutrophils Absolute Auto 3.7 K/mm3 (1.3-6.7); Neutrophils Percent Auto 59.2 % (45.5-73.1); Platelet Count Result 288 k/mm3 (150-375); Red Blood Count 4.38 M/mm3 (4.6-6.20); Red Cell Distribution Width 11.3 % (11.5-14.5); White Blood Count 6.3 K/mm3 (4.5-10.0)
--- NOTE | 2021-12-05 07:38 | WPDUROPN2 ---
Progress Note: A&P Assessment and Plan (1) Testicular infarct, left: Code(s): N50.1 - Vascular disorders of male genital organs Status: Acute Assessment and Plan: Segmental left testicular infarct post vasectomy. Improving from a pain control standpoint. He has remained afebrile. Okay for discharge from Urology standpoint. Would empirically placed on Bactrim DS 1 p.o. b.i.d. for 7 days. Continue with pain meds and anti-inflammatories as needed. Patient is to follow up with his urologist in [place] for any further issues. Subjective Subjective Date/Time Seen: 12/05/21 07:38 Principal diagnosis: Segmental left testicular infarct Interval history: Patient is feeling much better today. He has been up and ambulating last night. He is currently on Percocets as needed along with some anti-inflammatories. He is looking forward to being discharged today. Review of Systems Review of Systems: All systems reviewed & are unremarkable except as noted in HPI and below Exam Const: General: cooperative and no acute distress Resp: Effort & Inspection: normal respiratory effort : Scrotum: scrotal swelling Objective Data Vital Signs Vital Signs: Vital Signs - 24 hr 12/04/21 14:00 12/04/21 22:00 12/04/21 20:00 Temperature 36.8 C 36.8 C Pulse Rate 73 63 Respiratory Rate 16 16 Blood Pressure 145/85 H 133/73 Pulse Oximetry 98 97 Oxygen Delivery Room Air 12/05/21 06:00 Temperature 36.4 C Pulse Rate 67 Respiratory Rate 16 Blood Pressure 126/67 Pulse Oximetry 97 Oxygen Delivery Intake/Output Intake/Output: Intake & Output 12/02/21 12/03/21 12/04/21 12/05/21 23:59 23:59 23:59 23:59 Intake Total 50 1680 2794 350 Output Total 400 1100 Balance 50 1280 1694 350 Meds/Results Medications: Active Medications Generic Name Dose Route Start Last Admin Trade Name Freq PRN Reason Stop Dose Admin Acetaminophen 1,000 mg 12/02/21 21:44 Acetaminophen 500 Mg Tablet PO Q6H PRN Mild Pain (1-3) or Fever Hydromorphone HCl 1 mg 12/03/21 10:39 12/04/21 08:04 Hydromorphone Hcl Inj (*Crx) 1 Mg/Ml Syr IV PUSH 1 mg Q3H PRN Administration Pain Rated 7-10 Ampicillin Sodium/Sulbactam Sodium 3 gm in 100 mls @ 200 mls/hr 12/03/21 03:00 12/05/21 06:23 Unasyn 3 Gm/Ns 100 Ml IVPB Infused Q6H CONSUELO Infusion Ibuprofen 800 mg 12/04/21 09:00 12/05/21 03:37 Ibuprofen 400 Mg Tablet PO 800 mg Q6H CONSUELO Administration Ondansetron HCl 4 mg 12/02/21 20:34 12/04/21 08:08 Ondansetron Inj 4 Mg/2 Ml Vial IV PUSH 4 mg Q4H PRN Administration Nausea Oxycodone/Acetaminophen 1 tablet 12/03/21 10:38 12/04/21 18:50 Oxycodone/Acetaminophen (*Crx) 5-325 Mg Tablet PO 1 tablet Q4H PRN Administration Pain Rated 4-6 Radiology Results: ITS Impressions Scrotum Ultrasound 12/04/21 09:01 IMPRESSION: 1. Persistent 2.8 x 2.4 x 3.1 cm geographic region occupying approximately one half the left testicular volume which demonstrates decreased echogenicity and absent vascular flow on color Doppler which remains concerning for segmental infarction. Vascular flow is present but appears asymmetrically decreased in the remainder of the left testis and in the left epididymis relative to the contralateral right testis and epididymis. This could be due to either thrombosis or torsion with some regions of relatively preserved vascular flow due to collaterals. 2. Small complex left hydrocele. Labs Labs: Laboratory Results - last 24 hr 12/04/21 12/04/21 12/05/21 07:19 07:19 06:48 WBC 7.1 6.3 RBC 4.50 L 4.38 L Hgb 14.1 13.6 L Hct 40.6 L 40.0 L MCV 90.2 91.3 MCH 31.3 31.1 MCHC 34.7 34.0 RDW 11.4 L 11.3 L Plt Count 279 288 MPV 10.3 10.4 Immature Gran % (Auto) 0.4 0.5 Neut % (Auto) 64.0 59.2 Lymph % (Auto) 20.8 26.3 Brown % (Auto) 10.0 H 8.7 H Eos % (Auto) 4.0 4.4 Baso % (Auto) 0.8 0.9
[2021-12-05 07:50] LABS: Alanine Aminotransferase 43 U/L (6-50); Albumin Level 3.9 g/dL (3.5-5.1); Alkaline Phosphatase 68 U/L (38-126); Anion Gap 6 mmol/L (8-16); Aspartate Amino Transferase 32 U/L (17-59); Bilirubin,Total 0.4 mg/dL (0.2-1.3); Blood Urea Nitrogen 16 mg/dL (9-20); Calcium 8.7 mg/dL (8.4-10.2); Carbon Dioxide 29 mmol/L (22-30); Chloride 103 mmol/L (98-107); Estimated CRCL calculation 155 ml/min; Estimated Glomerular Filt Rate > 60; Glucose 112 mg/dL (65-110); Magnesium 2.1 mg/dL (1.6-2.3); Potassium 4.4 mmol/L (3.4-5.0); Sodium 138 mmol/L (137-145)
--- NOTE | 2021-12-05 11:13 | PM.DS ---
DS: Admitting Diagnosis Discharge Date 12/05/2021 Admitting Diagnosis Left testicular infarct DS: Discharge Diagnosis Discharge Diagnosis (1) Testicular infarct, left: Code(s): N50.1 - Vascular disorders of male genital organs Status: Acute Assessment and Plan: Status post vasectomy - Seen by urology. - Repeat scrotal ultrasound showed persistent segmental infarction, findings not felt to be consistent with torsion - Pain control - Outpatient urology follow up DS: Summary Hospital Course Hospital Course: Date of admission: 12/02/2021 Date of discharge: 12/05/2021 Chelo Storm is a healthy 36-year-old male who is status post vasectomy on 11/28/21 presented to outside hospital ER with complaints of testicular pain and swelling that had progressively worsened since his surgery. The outside hospital did not have ultrasound capability, therefore he was transferred to [facility] ED. On presentation to the ED, his scrotal ultrasound revealed segmental testicular infarction. He was admitted to the hospitalist service for further evaluation and management was seen in consultation by Urology. Please see above for further details. Scrotal exploration with possible orchiectomy was discussed with the patient, however he preferred to wait and allow for pain control with analgesics. He was started on IV antibiotics and IV analgesics for adequate pain control. His pain did improve and he was able to wean off IV analgesics. He will continue with p.o. Bactrim for 7 days and will continue with p.o. analgesics as needed. He will follow-up with his urologist in 1 week for continued monitoring. Given the patient's overall improvement, he was determined to no longer require inpatient care and was discharged in hemodynamically stable condition on 12/05/2021. Urology in agreement with discharge plans. Discussed with the patient worrisome signs and symptoms for which to return and he was educated on his medications. He will follow-up with his primary care provider and his urologist in 1 week. Status at Discharge Functional status at discharge: independent ambulation Overall status at discharge: patient is progressing back to baseline Time Spent with Patient Time attestation: Total time spent providing and/or coordinating discharge services: 40 minutes Time spent: Greater than 30 minutes Exam Narrative: General: Well-nourished well-appearing 36-year-old male, sitting up in bed, comfortable, NARD Neuro: awake, alert and oriented x4, speech clear, no focal neuro deficits noted HEENMT: normocephalic, atraumatic, EOMI, sclerae anicteric Respiratory: clear to auscultation bilaterally, nonlabored breathing Cardio: regular rate, regular rhythm with S1-S2 Abdomen: nondistended, normoactive bowel sounds, soft, nontender to palpation Extremities: no edema, erythema, or tenderness to palpation, DP pulses 2+ bilaterally Skin: no rashes or lesions, warm and dry Psych: appropriate mood and affect, judgment and insight intact DS: Data Data Completed and Pending Labs on day of discharge: Labs from last 24 hours 12/05/21 12/05/21 06:48 06:48 WBC 6.3 RBC 4.38 L Hgb 13.6 L Hct 40.0 L MCV 91.3 MCH 31.1 MCHC 34.0 RDW 11.3 L Plt Count 288 MPV 10.4 Immature Gran % (Auto) 0.5 Neut % (Auto) 59.2 Lymph % (Auto) 26.3 [place]vier % (Auto) 8.7 H Eos % (Auto) 4.4 Baso % (Auto) 0.9 Lymph # (Auto) 1.66 Sevier # (Auto) 0.6 Eos # (Auto) 0.3 Baso # (Auto) 0.1 Abs Immat Gran (auto) 0.03 Absolute Neuts (auto) 3.7 Absolute Nucleated RBC 0.0 Nucleated RBC % 0.0 Sodium 138 Potassium 4.4 Chloride 103 Carbon Dioxide 29 Anion Gap 6 L BUN 16 Creatinine 0.90 Estim Creat Clear Calc 155 Estimated GFR > 60 Glucose 112 H Calcium 8.7 Magnesium 2.1 Total Bilirubin 0.4 AST 32 ALT 43 Alkaline Phosphatase 68 Total Protein 7.0 Albumin 3.9 Imaging Radi
== END 2021-12-05 11:59 | disposition home or self-care (01) | DRG 730 ==
LOC: ANHED 20:40 → ANH3MEDSUR 21:01
PROVIDERS: Nurse Practitioner Adult Health; Physician Assistant; Admitting Provider Internal Medicine; Emergency Provider Emergency Medicine; Visit Provider Family Medicine
DX: N50.1 Vascular disorders of male genital organs (principal); N43.3 Hydrocele, unspecified; Z80.8 Family history of malignant neoplasm of other organs or systems; Z83.3 Family history of diabetes mellitus; Z87.891 Personal history of nicotine dependence; Z79.899 Other long term (current) drug therapy; Z98.52 Vasectomy status
CPT/HCPCS: 36415; 76870; 80048; 80053; 83735; 85025; 93976; 96365; 96375; 96376; 99285; A9270; G0378; J0295; J1170; J1885; J2405